=== PATIENT | male | born 1985 | race African-American/Black ===

== ENCOUNTER 2020-12-27 08:30 | Emergency (ER) | payer OTHER ==
[~2020-12-27] VITALS: Ht 188 cm; Wt 100.0 kg
[2020-12-27] MEDS ORDERED: MORPHINE 4 MG/ML 1ML VIAL/SYRINGE (J2270) IV PRN (08:45)
[2020-12-27] MEDS ORDERED: ONDANSETRON 4MG/2ML VIAL IV ONE (08:45)
[2020-12-27] MEDS ORDERED: BOOSTRIX/ADACEL VACCINE (DIPHTH/PERTUSS/ACELL/TETANUS) 0.5ML SYR IM ONE (08:45)
[2020-12-27] MEDS ORDERED: NS 1,000 ML IV SCH (08:45)
--- OUTSIDE RECORDS SUMMARY | 2020-12-27 09:13 | CCD ---
Author Author [facility] Organization [facility] Address Unknown Phone Unavailable Support Name Relationship Address Phone IZZY ALANIS, KARIN Next Of Kin [address] [facility] [address] [place] [address] UE Next Of Kin Unknown Unavailable MARY HUYNH Next Of Kin [address] [place] [address] Re-disclosure Warning The records that you are about to access may contain information from federally-assisted alcohol or drug abuse programs. If such information is present, then the following federally mandated warning applies: This information has been disclosed to you from records protected by federal confidentiality rules (42 CFR part 2). The federal rules prohibit you from making any further disclosure of this information unless further disclosure is expressly permitted by the written consent of the person to whom it pertains or as otherwise permitted by 42 CFR part 2. A general authorization for the release of medical or other information is NOT sufficient for this purpose. The Federal rules restrict any use of the information to criminally investigate or prosecute any alcohol or drug abuse patient.The records that you are about to access may contain highly sensitive health information, the redisclosure of which is protected by Article 27-F of the [facility] Public Health law. If you continue you may have access to information: Regarding HIV / AIDS; Provided by facilities licensed or operated by the [facility] Office of Mental Health; or Provided by the [facility] Office for People With Developmental Disabilities. If such information is present, then the following [facility] mandated warning applies: This information has been disclosed to you from confidential records which are protected by state law. State law prohibits you from making any further disclosure of this information without the specific written consent of the person to whom it pertains, or as otherwise permitted by law. Any unauthorized further disclosure in violation of state law may result in a fine or longterm sentence or both. A general authorization for the release of medical or other information is NOT sufficient authorization for further disc losure. Insurance Providers Payer name Policy type / Coverage type Policy ID Covered green party ID Covered green party's relationship to doyle Policy Doyle Plan Information IZZY HARO FAC [id number] SP [id number]
[2020-12-27] MEDS ORDERED: MORPHINE 4 MG/ML 1ML VIAL/SYRINGE (J2270) As Ordered ONE (09:18)
[2020-12-27] MEDS ORDERED: ONDANSETRON 4MG/2ML VIAL As Ordered ONE (09:18)
[2020-12-27 10:12] LABS: RSV AMPLIFICATION NEGATIVE (NEGATIVE)
[2020-12-27 10:50] VITALS: BP 130/74
== END 2020-12-27 10:55 | disposition short-term general hospital (02) ==
LOC: EDBD 08:30 → M ED 08:30
DX: T20.00XA Burn of unspecified degree of head, face, and neck, unspecified site, initial encounter (principal); T23.001A Burn of unspecified degree of right hand, unspecified site, initial encounter; T23.002A Burn of unspecified degree of left hand, unspecified site, initial encounter; X10.2XXA Contact with fats and cooking oils, initial encounter; Y92.89 Other specified places as the place of occurrence of the external cause
CPT/HCPCS: 87631; 90471; 90715; 96374; 96375; 99285; J2270; J2405